=== PATIENT | male | born 1990 | race Caucasian/White ===

== ENCOUNTER 2023-05-28 15:32 | Outpatient (CLI) | payer OTHER, SELFPAY | END 2023-05-28 15:33 | disposition home or self-care (01) | PROVIDERS: PCP Emergency Medicine; Visit Provider Emergency Medicine | DX: Z00.00 Encounter for general adult medical examination without abnormal findings (principal); K59.00 Constipation, unspecified; R07.9 Chest pain, unspecified; K62.5 Hemorrhage of anus and rectum; Z77.098 Contact with and (suspected) exposure to other hazardous, chiefly nonmedicinal, chemicals; Z80.42 Family history of malignant neoplasm of prostate | CPT/HCPCS: 83655; 84443; 86140; G0103 ==

== ENCOUNTER 2023-07-03 10:46 | Outpatient (CLI) | payer OTHER, SELFPAY ==
--- NOTE | 2023-07-03 12:01 | W.ANESCHARGE ---
Anesthesia Charges Start Date/Time Anesthesia Start Date: 07/03/23 Anesthesia Start Time: 11:40 Stop Date/Time Anesthesia Stop Date: 07/03/23 Anesthesia Stop Time: 12:00
--- NOTE | 2023-07-03 12:07 | W.ANESCHARGE ---
Anesthesia Charges Start Date/Time Anesthesia Start Date: 07/03/23 Anesthesia Start Time: 11:40 Stop Date/Time Anesthesia Stop Date: 07/03/23 Anesthesia Stop Time: 12:00
== END 2023-07-03 10:47 | disposition home or self-care (01) ==
LOC: OP CLINIC 10:46
PROVIDERS: PCP Emergency Medicine; Visit Provider Internal Medicine
DX: K92.1 Melena (principal); K64.8 Other hemorrhoids
CPT/HCPCS: 00812; 45378; J2704